=== PATIENT | male | born 1965 | race Caucasian/White ===

== ENCOUNTER → 2021-12-31 09:15 | Outpatient (CLI) | payer OTHER, SELFPAY ==
[2021-12-31 11:11] LABS: COVID19 -Nasal RAPID Negative (Negative)
== END ==
PROVIDERS: Family Provider Family Medicine; PCP Family Medicine; Visit Provider Surgery
DX: Z20.822 Contact with and (suspected) exposure to COVID-19 (principal); Z01.812 Encounter for preprocedural laboratory examination
CPT/HCPCS: 87635; C9803

== ENCOUNTER 2022-01-01 09:59 | Day surgery (SDC) | payer OTHER, SELFPAY ==
--- NOTE | 2022-01-01 | PATH_ITS ---
[facility] Accession Number: [id number] . 01 Material submitted: . rectum - RECTAL POLYP . 01 Diagnosis: Rectum, Polyps, Biopsies: Hyperplastic polyp, two fragments. MRV 01/05/2022 1231 Local . 01 Electronically signed: . Nia Sommers MD, Pathologist NPI- [id number] . 01 Gross description: . RECTAL POLYP: Received in formalin are 2 fragment(s) of bhatia, soft tissue measuring 0.2 x 0.2 x 0.2 cm to 0.3 x 0.2 x 0.2 cm submitted entirely in 1 cassette(s) /ATILIO 01/02/2022 2313 Local . 01 Pathologist provided ICD-10: K62.1 . 01 CPT . 442747 Specimen Comment: A courtesy copy of this report has been sent to [phone] Performed at: 01 [facility] [address] [place] [address], [place], [place] [id number] MD Keo Cesar MD Phone: [phone]
--- NOTE | 2022-01-01 09:57 | PM.HP.1 ---
History of Present Illness History of Present Illness Date Patient Seen: 01/01/22 Time Patient Seen: 09:57 Chief complaint: SDC Narrative: The patient presents for colorectal screening. Previous colonoscopy 5 years ago demonstrated benign polyps.. No personal or family history of colon cancer. On further history denies any recent gastrointestinal symptoms. No nausea, vomiting, abdominal pain, loss of appetite, unexplained weight loss, change in bowel habits, diarrhea, constipation, melena, hematochezia, or bright red blood per rectum. Patient History Medical History (Updated 01/01/22 @ 10:19 by Shilpi Angulo RN) HTN (hypertension) Hyperlipemia Meds Home Medications and Allergies Home Medications Medication Instructions Recorded Confirmed Type metoprolol succinate 50 mg 50 mg PO QDAY ##30 05/24/17 01/01/22 Rx tablet,extended release 24 hr sildenafil (pulm.hypertension) 20 20 - 40 mg PO Q DAY PRN PRN 01/01/22 01/01/22 History mg tablet Erectile Dysfunction Allergies Allergy/AdvReac Type Severity Reaction Status Date / Time codeine [CODEINE] Allergy Severe HALLUCINATI Verified 01/01/22 09:34 ONS Exam Narrative Exam Narrative: General adult male alert oriented no acute distress Chest nonlabored respirations Extremities warm well perfused Assessment & Plan Assessment & Plan narrative: The patient requires colorectal screening and colonoscopy is recommended. Technical details were discussed. Risks, benefits, alternatives explained. Risks including but not limited to myocardial infarction, aspiration, bleeding, pain, missed lesion, incomplete examination, need for further radiographic studies, colonic perforation, and need for major abdominal surgery were discussed. All questions were answered to their satisfaction, and they are in agreement with this plan. Time Spent With Patient Critical Care time: I spent a total of [] minutes of critical care time on this patient's care today; this time is exclusive of procedural time.
[2022-01-01 10:21] VITALS: BP 152/88; PULSE 57; RESP 16; TEMP 36.4; O2SAT 100; BMI 25.8
[2022-01-01] MEDS: LACTATED RINGERS 1,000 ML 200 ML IV (10:36)
--- NOTE | 2022-01-01 10:57 | P.OP.COLON_ITS ---
Operative Date/Time/Diagnoses Date of procedure: 01/01/22 Time of procedure: 10:57 Pre-op diagnosis: Personal history of colonic polyps Post-op diagnosis: same Procedure & Clinicians Study performed: Colonoscopy and polypectomy Same procedure as scheduled: Yes Indications: Personal history of colonic polyps Surgeon: Melvin Harrison Procedure Notes Procedure in detail: Medications: Conscious sedation using 6 mg IV midazolam and 150 mcg IV of f entanyl The history and physical was performed/updated and the patient is ASA class is 2. The procedure was discussed in detail with the patient. Potential risks complications including infection, bleeding, missed diagnosis, perforation, need for surgery, and were explained. Their questions were answered and informed consent was obtained. Patient was brought to the procedure room and placed standard monitoring equipment. The patient's vital signs were monitored continuously throughout the entire procedure. Prior to starting time-out was performed. The patient was placed in the left lateral recumbent position. Procedural sedation was administered. Examination began with a thorough inspection of the perianal area there was no evidence of fissures, fistulae, external hemorrhoids or cutaneous malignancy. The colonoscopy scope was then placed into the anal canal and was advanced to the cecum, which was identified by the ileocecal valve, the appendiceal orifice and the confluence of the taenia. The scope was then slowly withdrawn examining colon thoroughly in all directions, irrigating it of any residual stool. FINDINGS 1. Distal rectum-3 mm polyp removed with biopsy forceps 2. Sigmoid colon-mild diverticulosis The patient tolerated the procedure well. They will be discharged once criteria are met. The prep was of good/excellent quality. The withdrawl time was 7minutes. The sedation time was14 minutes. Specimen(s): other (Rectal polyp) Complications: none Impression: Colonic polyp Post-procedure Recommendations: High fiber diet and Will call with biopsy results Disposition: same day surgery
[2022-01-01 10:59] VITALS: BP 119/79; PULSE 53; RESP 12; TEMP 36.2; O2SAT 94
[2022-01-01] MEDS: fentaNYL 100 MCG/2 ML INJ IV (10:59)
[2022-01-01] MEDS: MIDAZOLAM 5 MG/5 ML VIAL IV (10:59)
[2022-01-01 11:04] VITALS: BP 117/69; PULSE 64; RESP 12; O2SAT 95
[2022-01-01 11:14] VITALS: BP 107/64; PULSE 60; RESP 14; O2SAT 98
[2022-01-01 11:15] VITALS: BP 137/89; PULSE 58; RESP 15; TEMP 36.5; O2SAT 96
[2022-01-01 11:25] VITALS: BP 128/88; PULSE 56; RESP 18; TEMP 36.2; O2SAT 96
== END 2022-01-01 11:45 | disposition home or self-care (01) ==
PROVIDERS: Family Provider Family Medicine; PCP Family Medicine; Referring Provider Surgery; Visit Provider Surgery
PROC: 0DJD8ZZ Inspection of Lower Intestinal Tract, Via Natural or Artificial Opening Endoscopic (ICD-10-PCS; CPT 45378; principal; 2022-01-01 11:00)
DX: Z12.11 Encounter for screening for malignant neoplasm of colon (principal); Z86.010 Personal history of colon polyps; K57.30 Diverticulosis of large intestine without perforation or abscess without bleeding; I10 Essential (primary) hypertension; E78.5 Hyperlipidemia, unspecified; K62.1 Rectal polyp
CPT/HCPCS: 45380; 99152; J2250; J3010